=== PATIENT | female | born 1960 | race Caucasian/White ===

== ENCOUNTER 2016-07-25 11:06 | Emergency (ER) | payer BC ==
[~2016-07-25] VITALS: Ht 162.5 cm; Wt 77.1 kg
[~2016-07-25 11:06] MED LIST: MEDROL DOSEPAK4 MG PO; SYNTHROID0.15 MG PO
[2016-07-25] MEDS ORDERED: VITAMIN D10000 UNIT PO (11:13)
[2016-07-25] MEDS ORDERED: NORCO 5-325 TA1 EACH PO (12:08)
== END 2016-07-25 13:43 | disposition home or self-care (01) ==
LOC: ED 11:06
DX: S92.515A Nondisplaced fracture of proximal phalanx of left lesser toe(s), initial encounter for closed fracture (principal); Z79.899 Other long term (current) drug therapy; W22.8XXA Striking against or struck by other objects, initial encounter; Y93.9 Activity, unspecified; Y92.9 Unspecified place or not applicable; Y99.9 Unspecified external cause status